=== PATIENT | female | born 1960 | race Two or more races ===

== ENCOUNTER 2017-01-22 16:21 | Inpatient (IN) | payer OTHER ==
[2017-01-22 17:48] VITALS: BMI 32.9
--- NOTE | 2017-01-22 21:21 | HP ---
CIWA Score - CIWA Score Nausea/Vomitin Muscle Tremors: 4-Moderate,w/Arms Extend Anxiety: 4-Mod. Anxious/Guarded Agitation: 3 Paroxysmal Sweats: 1-Minimal Palms Moist Orientation: 0-Oriented Tacttile Disturbances: 0-None Auditory Disturbances: 0-None Visual Disturbances: 0-None Headache: 1-Very Mild CIWA-Ar Total Score: 15 Admission ROS B[facility] - HPI Chief Complaint: WITHDRAWAL SX Allergies/Adverse Reactions: Allergies Allergy/AdvReac Type Severity Reaction Status Date / Time Penicillins Allergy Swelling Verified 01/22/17 20:28 History of Present Illness: 56 YEARS OLD FEMALE WITH LONG HISTORY OF ALCOHOL NICOTINE DEPENDENCE HAS HYPERTENSION DENIES MENTAL ILLNESS IS ADMITTED TO DETOX Exam Limitations: No Limitations - Ebola screening Have you traveled outside of the country in the last 21 days: No Have you had contact with anyone from an Ebola affected area: No Have you been sick,other than usual withdrawal symptoms: No Do you have a fever: No - Review of Systems Constitutional: Changes in sleep, Weight Stable EENT: reports: Blurred Vision (EYE GLASSES) Respiratory: reports: Cough (DRY COUGH) Cardiac: reports: No Symptoms Reported GI: reports: Nausea, Poor Fluid Intake, Abdominal cramping : reports: No Symptoms Reported Musculoskeletal: reports: Back Pain (ARTHRITIS) Integumentary: reports: No Symptoms Reported Neuro: reports: Tremors Endocrine: reports: No Symptoms Reported Hematology: reports: No Symptoms Reported Psychiatric: reports: Judgement Intact, Mood/Affect Appropiate, Orientated x3 Other Systems: Reviewed and Negative Patient History - Patient Medical History Hx Anemia: No Hx Asthma: No Hx Chronic Obstructive Pulmonary Disease (COPD): No Hx Cancer: No Hx Cardiac Disorders: No Hx Congestive Heart Failure: No Hx Hypertension: Yes (BP: 134/94) Hx Hypercholesterolemia: No Hx Pacemaker: No HX Cerebrovascular Accident: No Hx Seizures: No Hx Dementia: No Hx Diabetes: No Hx Gastrointestinal Disorders: No Hx Liver Disease: No Hx Genitourinary Disorders: No Hx Sexually Transmitted Disorders: No Hx Renal Disease (ESRD): No Hx Thyroid Disease: No Hx Human Immunodeficiency Virus (HIV): No Hx Hepatitis C: No Hx Depression: No Hx Suicide Attempt: No Hx Bipolar Disorder: No Hx Schizophrenia: No - Patient Surgical History Past Surgical History: Yes Hx Neurologic Surgery: No Hx Cataract Extraction: No Hx Cardiac Surgery: No Hx Lung Surgery: No Hx Breast Surgery: No Hx Breast Biopsy: No Hx Abdominal Surgery: No Hx Appendectomy: No Hx Cholecystectomy: No Hx Genitourinary Surgery: No Hx Section: Yes (23 YEARS AGO) Hx Orthopedic Surgery: No Hx Hysterectomy: No Other Surgical History: L Inguinal and Abdominal Hernia [id number] Anesthesia Reaction: No - PPD History Previous Implant?: Yes Documented Results: Negative w/o proof Implanted On Prior [facility] Admission?: No PPD to be Administered?: Yes - Reproductive History Patient is a Female of Child Bearing Age (11 -55 yrs old): No Patient : No - Smoking Cessation Smoking history: Current every day smoker Have you smoked in the past 12 months: Yes Aproximately how many cigarettes per day: 8 Cigars Per Day: 0 Hx Chewing Tobacco Use: No Initiated information on smoking cessation: Yes 'Breaking Loose' booklet given: 01/22/17 - Substance & Tx. History Hx Alcohol Use: Yes Hx Substance Use: No Substance Use Type: Alcohol Hx Substance Use Treatment: No (1ST DETOX) - Substances Abused Alcohol Route: Oral Frequency: Daily Amount used: Liquor 2 shots, Beer 12 cans Age of first use: 13 Date of Last Use: 01/22/17 Family Disease History - Family Disease History Family Disease History: Heart Disease: Father (), Respiratory: Mother ( ), Other: Father, Mother Admission Physical Exam S - Vital Signs Vital Signs: Vital Signs - 24 hr 01/22/17 17:46 Temperature 97.7 F Pulse Rate 118 H Respiratory 20 Rate Blood Pressure 134/94 - Physical General Appearance: Yes: Appropriately Dressed, Mild Distress, Tremorous, Irritable, Sweating, Anxious HEENTM: Yes: Hearing grossly Normal, Normal ENT Inspection, Normocephalic, Normal Voice Respiratory: Yes: Chest Non-Tender, Lungs Clear, Normal Breath Sounds, No Respiratory Distress, No Accessory Muscle Use Neck: Yes: Supple, Trachea in good position Breast: Yes: Breasts Symetrical Cardiology: Yes: Regular Rhythm, S1, S2, Tachycardia Abdominal: Yes: Non Tender, Soft Genitourinary: Yes: Within Normal Limits Back: Yes: Normal Inspection Musculoskeletal: Yes: full range of Motion, Gait Steady, Back pain Extremities: Yes: Normal Range of Motion, Non-Tender, Tremors Neurological: Yes: Fully Oriented, Alert, Motor Strength 5/5, Normal Mood/Affect , Normal Response Integumentary: Yes: Warm Lymphatic: Yes: Within Normal Limits - Diagnostic (1) Alcohol dependence with uncomplicated withdrawal Current Visit: Yes Status: Acute (2) Nicotine dependence Current Visit: Yes Status: Acute Qualifiers: Nicotine product type: cigarettes Substance use status: in withdrawal Qualified Code(s): F17.213 - Nicotine dependence, cigarettes, with withdrawal (3) Hypertension Current Visit: Yes Status: Chronic Qualifiers: Hypertension type: essential hypertension Qualified Code(s): I10 - Essential (primary) hypertension (4) Swelling of both ankles Current Visit: Yes Status: Chronic Cleared for Admission S - Detox or Rehab S Level of Care: Medically Managed Detox Regimen/Protocol: Librium S Breath Alcohol Content Breath Alcohol Content: 0 Urine Pregancy Test - Result Urine Test Results: Negative- NO Line Present Urine Drug Screen - Results Drug Screen Negative: Yes
[2017-01-22] MEDS ORDERED: hydrOXYzine PAMOATE 50 MG CAPSULE (FP) PO PRN (21:23)
[2017-01-22] MEDS ORDERED: ACETAMINOPHEN 325 MG TABLET (FP) PO PRN (21:23)
[2017-01-22] MEDS ORDERED: MAG HYDROX/AL HYDROX/SIMETH 30 ML UNIT-DOSE CUP PO PRN (21:23)
[2017-01-22] MEDS ORDERED: LOPERAMIDE HCL 2 MG CAPSULE PO PRN (21:23)
[2017-01-22] MEDS ORDERED: MENTHOL/PHENOL 1 EACH UD MM PRN (21:23)
[2017-01-22] MEDS ORDERED: IBUPROFEN 400 MG TABLET (FP) PO PRN (21:23)
[2017-01-22] MEDS ORDERED: MAGNESIUM CITRATE 300 ML BOTTLE PO PRN (21:23)
[2017-01-22] MEDS ORDERED: P-EPHED 60MG/TRIPROLIDI 2.5MG TABLET PO PRN (21:23)
[2017-01-22] MEDS ORDERED: NICOTINE POLACRILEX 2 MG GUM BC PRN (21:23)
[2017-01-22] MEDS ORDERED: guaiFENesin/D-METHORPHAN HB 10 ML UNIT-DOSE CUPS PO PRN (21:23)
[2017-01-22] MEDS ORDERED: MAGNESIUM HYDROX 2400MG/30ML ORAL SUSPENSION 30 ML CUP PO PRN (21:23)
[2017-01-22] MEDS ORDERED: chlordiazePOXIDE HCL 25 MG CAPSULE PO PRN (21:23)
[2017-01-22] MEDS: chlordiazePOXIDE HCL 25 MG CAPSULE PO SCH (22:06)
[2017-01-22] MEDS: THIAMINE HCL 100 MG TABLET (FP) PO SCH (22:06)
[2017-01-22] MEDS: diphenhydrAMINE HCL 50 MG CAPSULE PO PRN (22:06)
[2017-01-22 22:12] LABS: URINE APPEARANCE CLEAR; URINE BILIRUBIN NEGATIVE (NEGATIVE); URINE BLOOD NEGATIVE (NEGATIVE); URINE COLOR LTYELLOW; URINE GLUCOSE (UA) NEGATIVE (NEGATIVE); URINE KETONE NEGATIVE (NEGATIVE); URINE LEUK ESTERASE NEGATIVE (NEGATIVE); URINE NITRITE NEGATIVE (NEGATIVE); URINE PROTEIN NEGATIVE (NEGATIVE); URINE UROBILINOGEN NEGATIVE mg/dL (0.2-1.0)
[2017-01-23] MEDS: chlordiazePOXIDE HCL 25 MG CAPSULE PO SCH ×4 (06:09→22:18)
[2017-01-23 10:05] LABS: MCH 30.1 pg (25.7-33.7); MCHC 33.5 g/dl (32.0-36.0); MEAN CELL VOLUME 89.9 fl (80-96); MEAN PLT VOLUME 8.9 fl (7.5-11.1); PLATELET COUNT 196 K/MM3 (134-434); RDW 14.4 % (11.6-15.6); WHITE BLOOD COUNT 7.4 K/mm3 (4.0-10.0)
[2017-01-23] MEDS: HYDROCHLOROTHIAZIDE 25 MG TABLET (FP) PO SCH (10:45)
[2017-01-23] MEDS: ENALAPRIL MALEATE 10 MG TABLET (FP) PO SCH (10:45)
[2017-01-23] MEDS: PRENATAL VITAMINS W/ FOLIC ACID TABLET (FP) PO SCH (10:45)
[2017-01-23] MEDS: NICOTINE 14 MG/24 HOURS TOPICAL PATCH TD SCH (10:46)
[2017-01-23 10:57] LABS: ALBUMIN 3.2 g/dl (3.4-5.0); ALK PHOS 81 U/L (45-117); ANION GAP 7 (8-16); BILIRUBIN,TOTAL 0.3 mg/dL (0.2-1.0); CALCIUM 8.7 mg/dL (8.5-10.1); CO2 31 mmol/L (21-32); CREATININE 0.7 mg/dL (0.55-1.02); GLUCOSE,RANDOM 98 mg/dL (74-106); SGOT/AST 11 U/L (15-37); SGPT/ALT 24 U/L (12-78); TOT PROT 5.8 g/dl (6.4-8.2)
--- NOTE | 2017-01-23 12:43 | PN ---
[facility] CIWA - CIWA Score Nausea/Vomitin-No Nausea/No Vomiting Muscle Tremors: 3 Anxiety: 4-Mod. Anxious/Guarded Agitation: 3 Paroxysmal Sweats: 3 Orientation: 0-Oriented Tacttile Disturbances: 0-None Auditory Disturbances: 0-None Visual Disturbances: 0-None Headache: 0-None Present CIWA-Ar Total Score: 13 S Progress Note (SOAP) Subjective: Anxiety,tremors,sweating,interrupted sleep,restless Objective: 01/23/17 12:42 Vital Signs - 8 hr 01/23/17 01/23/17 06:00 09:42 Temperature 96.3 F L 97.4 F L Pulse Rate 68 84 Respiratory 18 18 Rate Blood Pressure 130/75 138/91 Laboratory Last Values WBC 7.4 K/mm3 (4.0-10.0) 01/23/17 07:00 RBC 4.29 M/mm3 (3.60-5.2) 01/23/17 07:00 Hgb 12.9 GM/dL (10.7-15.3) 01/23/17 07:00 Hct 38.6 % (32.4-45.2) 01/23/17 07:00 MCV 89.9 fl (80-96) 01/23/17 07:00 MCH 30.1 pg (25.7-33.7) 01/23/17 07:00 MCHC 33.5 g/dl (32.0-36.0) 01/23/17 07:00 RDW 14.4 % (11.6-15.6) 01/23/17 07:00 Plt Count 196 K/MM3 (134-434) 01/23/17 07:00 MPV 8.9 fl (7.5-11.1) 01/23/17 07:00 Sodium 142 mmol/L (136-145) 01/23/17 07:00 Potassium 3.6 mmol/L (3.5-5.1) 01/23/17 07:00 Chloride 104 mmol/L (98-107) 01/23/17 07:00 Carbon Dioxide 31 mmol/L (21-32) 01/23/17 07:00 Anion Gap 7 (8-16) L 01/23/17 07:00 BUN 22 mg/dL (7-18) H 01/23/17 07:00 Creatinine 0.7 mg/dL (0.55-1.02) 01/23/17 07:00 Creat Clearance w eGFR > 60 (>60) 01/23/17 07:00 Random Glucose 98 mg/dL (74-106) 01/23/17 07:00 Calcium 8.7 mg/dL (8.5-10.1) 01/23/17 07:00 Total Bilirubin 0.3 mg/dL (0.2-1.0) 01/23/17 07:00 AST 11 U/L (15-37) L 01/23/17 07:00 ALT 24 U/L (12-78) 01/23/17 07:00 Alkaline Phosphatase 81 U/L (45-117) 01/23/17 07:00 Total Protein 5.8 g/dl (6.4-8.2) L 01/23/17 07:00 Albumin 3.2 g/dl (3.4-5.0) L 01/23/17 07:00 Urine Color Ltyellow 01/22/17 21:00 Urine Appearance Clear 01/22/17 21:00 Urine pH 5.0 (5.0-8.0) 01/22/17 21:00 Urine Protein Negative (NEGATIVE) 01/22/17 21:00 Urine Glucose (UA) Negative (NEGATIVE) 01/22/17 21:00 Urine Ketones Negative (NEGATIVE) 01/22/17 21:00 Urine Blood Negative (NEGATIVE) 01/22/17 21:00 Urine Nitrite Negative (NEGATIVE) 01/22/17 21:00 Urine Bilirubin Negative (NEGATIVE) 01/22/17 21:00 Urine Urobilinogen Negative mg/dL (0.2-1.0) 01/22/17 21:00 Ur Leukocyte Esterase Negative (NEGATIVE) 01/22/17 21:00 labs noted Assessment: 01/23/17 12:42 Withdrawal sx. Plan: Continue detox
[2017-01-23] MEDS: THIAMINE HCL 100 MG TABLET (FP) PO SCH (22:18)
[2017-01-23] MEDS: diphenhydrAMINE HCL 50 MG CAPSULE PO PRN (22:18)
[2017-01-24] MEDS: chlordiazePOXIDE HCL 25 MG CAPSULE PO SCH ×3 (05:38→17:34)
[2017-01-24] MEDS: HYDROCHLOROTHIAZIDE 25 MG TABLET (FP) PO SCH (10:46)
[2017-01-24] MEDS: ENALAPRIL MALEATE 10 MG TABLET (FP) PO SCH (10:46)
[2017-01-24] MEDS: PRENATAL VITAMINS W/ FOLIC ACID TABLET (FP) PO SCH (10:46)
[2017-01-24] MEDS: NICOTINE 14 MG/24 HOURS TOPICAL PATCH TD SCH (10:47)
--- NOTE | 2017-01-24 11:35 | PN ---
S CIWA - CIWA Score Nausea/Vomitin Muscle Tremors: 3 Anxiety: 2 Agitation: 2 Paroxysmal Sweats: 3 Orientation: 0-Oriented Tacttile Disturbances: 2-Mild Itch/Numbness/Burn Auditory Disturbances: 0-None Visual Disturbances: 0-None Headache: 0-None Present CIWA-Ar Total Score: 14 S Progress Note (SOAP) Subjective: interrupted sleep, sweats, shakes, bodyaches Objective: 01/24/17 11:33 Vital Signs Temperature 96.1 F L 01/24/17 10:05 Pulse Rate 78 01/24/17 10:05 Respiratory Rate 18 01/24/17 10:05 Blood Pressure 111/74 01/24/17 10:05 O2 Sat by Pulse Oximetry (%) Laboratory Tests 01/22/17 01/22/17 01/23/17 07:00 21:00 07:00 WBC 7.4 RBC 4.29 Hgb 12.9 Hct 38.6 MCV 89.9 MCH 30.1 MCHC 33.5 RDW 14.4 Plt Count 196 MPV 8.9 Sodium Potassium Chloride Carbon Dioxide Anion Gap BUN Creatinine Creat Clearance w eGFR Random Glucose Calcium Total Bilirubin AST ALT Alkaline Phosphatase Total Protein Albumin Urine Color Ltyellow Urine Appearance Clear Urine pH 5.0 Ur Specific [place] 1.020 Urine Protein Negative Urine Glucose (UA) Negative Urine Ketones Negative Urine Blood Negative Urine Nitrite Negative Urine Bilirubin Negative Urine Urobilinogen Negative Ur Leukocyte Esterase Negative Hepatitis C Antibody <0.1 01/23/17 07:00 WBC RBC Hgb Hct MCV MCH MCHC RDW Plt Count MPV Sodium 142 Potassium 3.6 Chloride 104 Carbon Dioxide 31 Anion Gap 7 L BUN 22 H Creatinine 0.7 Creat Clearance w eGFR > 60 Random Glucose 98 Calcium 8.7 Total Bilirubin 0.3 AST 11 L ALT 24 Alkaline Phosphatase 81 Total Protein 5.8 L Albumin 3.2 L Urine Color Urine Appearance Urine pH Ur Specific [place] Urine Protein Urine Glucose (UA) Urine Ketones Urine Blood Urine Nitrite Urine Bilirubin Urine Urobilinogen Ur Leukocyte Esterase Hepatitis C Antibody pt aox3 in nad ambulating Assessment: 01/24/17 11:34 withdrawal sx;s Plan: cont. detox increase fluids motrin prn
--- NOTE | 2017-01-24 12:57 | EKG ---
Test Reason : Blood Pressure : / mmHG Vent. Rate : 083 BPM Atrial Rate : 083 BPM P-R Int : 142 ms QRS Dur : 102 ms QT Int : 388 ms P-R-T Axes : 057 044 053 degrees QTc Int : 455 ms NORMAL SINUS RHYTHM NORMAL ECG NO PREVIOUS ECGS AVAILABLE Confirmed by JORGE COLBERT, MIKAYLA ([id number]) on 01/24/2017 12:57:16 PM Referred By: Confirmed By:MIKAYLA PATEL MD
[2017-01-24] MEDS: chlordiazePOXIDE 5 MG CAPSULE PO SCH (22:25)
[2017-01-24] MEDS: diphenhydrAMINE HCL 50 MG CAPSULE PO PRN (22:25)
[2017-01-24] MEDS: THIAMINE HCL 100 MG TABLET (FP) PO SCH (22:26)
[2017-01-25] MEDS: chlordiazePOXIDE 5 MG CAPSULE PO SCH ×3 (05:19→18:21)
[2017-01-25] MEDS: HYDROCHLOROTHIAZIDE 25 MG TABLET (FP) PO SCH (10:52)
[2017-01-25] MEDS: PRENATAL VITAMINS W/ FOLIC ACID TABLET (FP) PO SCH (10:52)
[2017-01-25] MEDS: ENALAPRIL MALEATE 10 MG TABLET (FP) PO SCH (10:52)
[2017-01-25] MEDS: NICOTINE 14 MG/24 HOURS TOPICAL PATCH TD SCH (10:53)
--- NOTE | 2017-01-25 12:05 | PN ---
[facility] Progress Note (SOAP) Subjective: sweats shakes body aches tired Objective: 01/25/17 12:05 Vital Signs Temperature 97.9 F 01/25/17 10:03 Pulse Rate 98 H 01/25/17 10:03 Respiratory Rate 18 01/25/17 10:03 Blood Pressure 133/82 01/25/17 10:03 O2 Sat by Pulse Oximetry (%) awake/alert ambulating no acute distress Assessment: 01/25/17 12:05 withdrawal sx Plan: continue detox increase fluids
--- NOTE | 2017-01-25 15:02 | PN ---
[facility] Progress Note Note: pt was made aware of her RPR result and she states she was treated for syphilis 20yrs ago and knows her titers come back +. No further tx needed at this time.
[2017-01-25] MEDS: THIAMINE HCL 100 MG TABLET (FP) PO SCH (22:25)
[2017-01-25] MEDS: diphenhydrAMINE HCL 50 MG CAPSULE PO PRN (22:25)
[2017-01-25] MEDS: chlordiazePOXIDE HCL 10 MG CAPSULE PO SCH (22:25)
[2017-01-26] MEDS ORDERED: chlordiazePOXIDE 5 MG CAPSULE ONE (04:58)
[2017-01-26] MEDS: chlordiazePOXIDE HCL 10 MG CAPSULE PO SCH (05:38)
[2017-01-26 06:39] VITALS: BP 120/73; PULSE 80; TEMP 97
--- NOTE | 2017-01-26 09:19 | DS ---
[facility] Detox Discharge Summary Admission Date: 01/22/17 Discharge Date: 01/26/17 - History Present History: Alcohol Dependence - Physical Exam Results Vital Signs: Vital Signs Temperature 97 F L 01/26/17 06:38 Pulse Rate 80 01/26/17 06:38 Respiratory Rate 18 01/26/17 06:38 Blood Pressure 120/73 01/26/17 06:38 O2 Sat by Pulse Oximetry (%) - Treatment Hospital Course: Detox Protocol Followed, Detoxed Safely, Responded well, Discharged Condition Good, Rehab Referral Accepted - Medication Discharge Medications: Ambulatory Orders Enalapril Maleate [Vasotec] 20 mg PO DAILY 01/22/17 Hydrochlorothiazide [Hctz -] 25 mg PO DAILY 01/22/17 - Diagnosis (1) Alcohol dependence with uncomplicated withdrawal Current Visit: Yes Status: Chronic (2) Nicotine dependence Current Visit: Yes Status: Chronic Qualifiers: Nicotine product type: cigarettes Substance use status: uncomplicated Qualified Code(s): F17.210 - Nicotine dependence, cigarettes, uncomplicated (3) Hypertension Current Visit: Yes Status: Chronic Qualifiers: Hypertension type: essential hypertension Qualified Code(s): I10 - Essential (primary) hypertension (4) Swelling of both ankles Current Visit: Yes Status: Chronic - AMA Did Patient Leave Against Medical Advice: No
[2017-01-26] MEDS: HYDROCHLOROTHIAZIDE 25 MG TABLET (FP) PO SCH (09:32)
[2017-01-26] MEDS: ENALAPRIL MALEATE 10 MG TABLET (FP) PO SCH (09:32)
[2017-01-26] MEDS: PRENATAL VITAMINS W/ FOLIC ACID TABLET (FP) PO SCH (09:32)
[2017-01-26] MEDS: NICOTINE 14 MG/24 HOURS TOPICAL PATCH TD SCH (09:32)
== END 2017-01-26 09:47 | disposition home or self-care (01) | DRG 775 ==
LOC: YASAS 16:21 → Y6N 20:58
PROVIDERS: ADMIT Internal Medicine; ATTEND Internal Medicine
PROC: HZ2ZZZZ Detoxification Services for Substance Abuse Treatment (ICD-10-PCS; principal; 2017-01-26)
DX: F10.230 Alcohol dependence with withdrawal, uncomplicated (principal); F17.210 Nicotine dependence, cigarettes, uncomplicated; I10 Essential (primary) hypertension; R60.0 Localized edema
CPT/HCPCS: 36415; 80053; 81003; 85027; 86593; 86780; 86803; 93005; 93010